=== PATIENT | female | born 1940 | race Caucasian/White ===

== ENCOUNTER 2016-08-05 08:49 | Outpatient (CLI) | payer OTHER ==
--- NOTE | 2016-08-05 10:23 | DIAGNOSTIC IMAGING REPORT ---
PROCEDURE: CT THORAX WITH CONTRAST INDICATION: LUNG NODULE, follow-up TECHNIQUE: 100 ml of Isovue 300 was injected intravenously and axial images were obtained of the chest with coronal and sagittal reformations. COMPARISON: Chest x-ray From [facility] 07/28/2016. FINDINGS: Lungs are clear without evidence of pulmonary nodules. The chest x-ray finding corresponds to sclerosis of the right clavicle medially. Normal airways. No adenopathy or effusion. Normal thoracic aorta without dissection or aneurysm. Mild coronary atherosclerosis. Heart size is normal. Bilateral breast implants with apparent left breast implant rupture. Visualized upper abdomen is unremarkable. Mild degenerative changes of the spine. IMPRESSION: 1. No evidence of a pulmonary nodule. Density on the chest x-ray corresponds to focal sclerosis of the right clavicle medially.
--- NOTE | 2016-08-05 10:23 | DIAGNOSTIC IMAGING REPORT ---
PROCEDURE: CT THORAX WITH CONTRAST INDICATION: LUNG NODULE, follow-up TECHNIQUE: 100 ml of Isovue 300 was injected intravenously and axial images were obtained of the chest with coronal and sagittal reformations. COMPARISON: Chest x-ray From [facility] 07/28/2016. FINDINGS: Lungs are clear without evidence of pulmonary nodules. The chest x-ray finding corresponds to sclerosis of the right clavicle medially. Normal airways. No adenopathy or effusion. Normal thoracic aorta without dissection or aneurysm. Mild coronary atherosclerosis. Heart size is normal. Bilateral breast implants with apparent left breast implant rupture. Visualized upper abdomen is unremarkable. Mild degenerative changes of the spine. IMPRESSION: 1. No evidence of a pulmonary nodule. Density on the chest x-ray corresponds to focal sclerosis of the right clavicle medially.
== END 2016-08-05 23:00 ==
LOC: CT SRH 08:49
DX: R91.1 Solitary pulmonary nodule (principal); R05 Cough